=== PATIENT | female | born 1985 ===

== ENCOUNTER 2018-04-30 07:32 | Outpatient (CLI) | payer SELFPAY | END 2018-04-30 07:33 | disposition home or self-care (01) | LOC: C.MRIC 07:32 ==

== ENCOUNTER 2018-05-30 10:34 | Outpatient (CLI) | payer SELFPAY | END 2018-05-30 10:35 | disposition home or self-care (01) | LOC: C.EEG 10:34 | DX: R55 Syncope and collapse (principal) ==